=== PATIENT | female | born 1980 | race Hispanic/Latino ===

== ENCOUNTER 2021-02-01 00:43 | Emergency (ER) | payer SELFPAY ==
[2021-02-01 00:56] VITALS: BP 156/94
[2021-02-01] MEDS ORDERED: LIDOCAINE (1%) 10 MG/1 ML VIAL 20 ML MDV INFILTRATI ONE (03:05)
[2021-02-01] MEDS ORDERED: TETANUS,DIPH,PERTUSS(ACELL) VACCINE 0.5 ML SYRINGE IM ONE (03:05)
--- NOTE | 2021-02-01 03:29 | Emergency Department Report ---
ED General Adult HPI - General Chief complaint: Wound/Laceration Stated complaint: LT HAND LACERATION Time Seen by Provider: 02/01/21 02:06 Source: patient Mode of arrival: Ambulatory Limitations: No Limitations - History of Present Illness Initial comments: 40-year-old female patient presents with laceration to right forearm today. She states she put her hand through a broken window. She is unsure of her last tetanus vaccination. She denies any difficulty moving her liver numbness/tingling/weakness in her limbs. Severity scale (0 -10): 5 - Related Data Previous Rx's Medication Instructions Recorded Last Taken Type Ibuprofen [Motrin 800 MG tab] 800 mg PO Q8HR PRN #20 tablet 02/01/21 Unknown Rx Mupirocin [Bactroban 2% OINT] 1 applic TP TID 7 Days #1 tube 02/01/21 Unknown Rx Allergies Allergy/AdvReac Type Severity Reaction Status Date / Time lamotrigine [From Lamictal] Allergy Rash Verified 02/01/21 00:53 ED Review of Systems ROS: Stated complaint: LT HAND LACERATION Other details as noted in HPI Musculoskeletal: denies: arthralgia Skin: denies: change in color Neurological: denies: numbness, paresthesias ED Past Medical Hx - Past Medical History Hx Hypertension: Yes (off meds) Hx Psychiatric Treatment: Yes (schizoaffective) Additional medical history: high cholesterol - Surgical History Hx Breast Surgery: Yes (left (cyst)) Additional Surgical History: LEEP - Social History Smoking Status: Never Smoker Substance Use Type: None - Medications Home Medications: Home Medications Medication Instructions Recorded Confirmed Last Taken Type Ibuprofen [Motrin 800 MG tab] 800 mg PO Q8HR PRN #20 tablet 02/01/21 Unknown Rx Mupirocin [Bactroban 2% OINT] 1 applic TP TID 7 Days #1 tube 02/01/21 Unknown Rx ED Physical Exam - General Limitations: No Limitations General appearance: alert, in no apparent distress - Head Head exam: Present: atraumatic, normocephalic - Eye Eye exam: Present: normal appearance - Respiratory Respiratory exam: Absent: respiratory distress - Cardiovascular Cardiovascular Exam: Present: regular rate - Expanded Upper Extremity Exam Right Forearm Wrist exam: Present: full ROM, laceration (Approximately 4 cm linear laceration noted to volar aspect of forearm without active bleeding or obvious foreign bodies). Absent: swelling Hand Wrist exam: Present: normal inspection Vascular: Absent: vascular compromise - Neurological Exam Neurological exam: Present: alert, oriented X3 - Psychiatric Psychiatric exam: Present: normal affect, normal mood ED Course Vital Signs 02/01/21 00:53 Temperature 98.8 F Pulse Rate 99 H Respiratory 18 Rate Blood Pressure 156/94 O2 Sat by Pulse 98 Oximetry - Laceration /Wound Repair Arm Wound Location: upper extremity Wound Length (cm): 4 Wound's Depth, Shape: linear Irrigated w/ Saline (ccs): 50 Betadine Prep?: No Anesthesia: Lidocaine w/ Epi Volume Anesthetic (ccs): 3 Wound Repaired With: sutures Suture Size/Type: 4:0, proline Number of Sutures: 8 (Continuous) Layer Closure?: No Sterile Dressing Applied?: Yes Progress: Minimal bleeding occurred. Patient tolerated procedure well without any immediate complications. She has normal perfusion and range of motion of the forearm and wrist/hand post procedure ED Medical Decision Making - Medical Decision Making 40-year-old female patient presents with laceration to right forearm today. She states she put her hand through a broken window. She is unsure of her last tetanus vaccination. She denies any difficulty moving her liver numbness/tingling/weakness in her limbs. Laceration repair without any immediate complications. Prescription for mupirocin given. Discussed wound care and signs and symptoms that should prompt immediate return to the emergency department in detail with patient who verbalizes understanding. She is to return to the ED in 10 days for suture removal. She is well-appearing and stable for discharge home. Critical care attestation.: If time is entered above; I have spent that time in minutes in the direct care of this critically ill patient, excluding procedure time. ED Disposition Clinical Impression: Laceration of right forearm Qualifiers: Encounter type: initial encounter Qualified Code(s): S51.811A - Laceration without foreign body of right forearm, initial encounter Disposition: TO HOME OR SELFCARE Is pt being admited?: No Condition: Stable Instructions: Sutured Wound Care, [id number] Additional Instructions: Return to the emergency department in 10 days for suture removal Prescriptions: Mupirocin [Bactroban 2% OINT] 1 applic TP TID 7 Days #1 tube Ibuprofen [Motrin 800 MG tab] 800 mg PO Q8HR PRN #20 tablet PRN Reason: pain Referrals: GUCCI MAN MD [Primary Care Provider] - 3-5 Days
== END 2021-02-01 03:40 | disposition home or self-care (01) ==
LOC: ED 00:43
DX: S51.811A Laceration without foreign body of right forearm, initial encounter (principal); I10 Essential (primary) hypertension; E78.00 Pure hypercholesterolemia, unspecified; Z98.890 Other specified postprocedural states; Z79.899 Other long term (current) drug therapy; W26.8XXA Contact with other sharp object(s), not elsewhere classified, initial encounter; Y93.89 Activity, other specified; Y92.89 Other specified places as the place of occurrence of the external cause; Y99.8 Other external cause status
CPT/HCPCS: 90471; 90715; 99282

== ENCOUNTER 2021-02-10 10:03 | Emergency (ER) | payer SELFPAY ==
[2021-02-10 10:33] VITALS: BP 142/67
--- NOTE | 2021-02-10 11:11 | Emergency Department Report ---
Suture/Staple Removal - [facility] Chief Complaint: Laceration/Recheck/Suture Stated Complaint: STITCHES REMOVED Time Seen by Provider: 02/10/21 10:38 When Sutures or [place] Placed: 8-10 Days Ago Wound Location: right forearm ED Review of Systems ROS: Stated complaint: STITCHES REMOVED Other details as noted in HPI Constitutional: denies: chills, fever Eyes: denies: eye pain, eye discharge, vision change ENT: denies: ear pain, throat pain Respiratory: denies: cough, shortness of breath, wheezing Cardiovascular: denies: chest pain, palpitations Endocrine: no symptoms reported Gastrointestinal: denies: abdominal pain, nausea, diarrhea Genitourinary: denies: urgency, dysuria, discharge Musculoskeletal: denies: back pain, joint swelling, arthralgia Skin: denies: rash, lesions Neurological: denies: headache, weakness, paresthesias Psychiatric: denies: anxiety, depression Hematological/Lymphatic: denies: easy bleeding, easy bruising ED Past Medical Hx - Past Medical History Hx Hypertension: Yes (off meds) Hx Psychiatric Treatment: Yes (schizoaffective) Additional medical history: high cholesterol - Surgical History Hx Breast Surgery: Yes (left (cyst)) Additional Surgical History: LEEP - Social History Smoking Status: Never Smoker - Medications Home Medications: Home Medications Medication Instructions Recorded Confirmed Last Taken Type Ibuprofen [Motrin 800 MG tab] 800 mg PO Q8HR PRN #20 tablet 02/01/21 Unknown Rx Mupirocin [Bactroban 2% OINT] 1 applic TP TID 7 Days #1 tube 02/01/21 Unknown Rx Suture Removal Exam - Exam General: Vital signs noted. No distress. Alert and acting appropriately. Wound: No Pathologic Erythema, No Tenderness, No Drainage, No Pus, No Wound De hiscence Other Systems: All other systems reviewed and are unremarkable. ED Course Vital Signs 02/10/21 10:33 Temperature 98.2 F Pulse Rate 79 Respiratory 18 Rate Blood Pressure 142/67 O2 Sat by Pulse 93 Oximetry - Reevaluation(s) Reevaluation #1: 02/10/21 11:12 Patient is speaking in full sentences with no signs of distress noted. ED Recheck MDM - Medical Decision Making This is a 40-year-old female that presents with suture removal. She is stable and was examined by me. Total of 8 running sutures has been removed and patient tolerated well. No signs of wound dehiscence, drainage, or cellulitis. Patient was referred to Follow-up with a primary care doctor in 3-5 days or if symptoms worsen and continue return to emergency room as soon as possible. At time of discharge, the patient does not seem toxic or ill in appearance. No acute signs of distress noted. Patient agrees to discharge treatment plan of care. No further questions noted by the patient. Critical care attestation.: If time is entered above; I have spent that time in minutes in the direct care of this critically ill patient, excluding procedure time. ED Disposition Clinical Impression: Encounter for removal of sutures Disposition: DC-01 TO HOME OR SELFCARE Is pt being admited?: No Does the pt Need Aspirin: No Condition: Stable Additional Instructions: Follow-up with a primary care doctor in 3-5 days or if symptoms worsen and continue return to emergency room as soon as possible. Referrals: PRIMARY MD MAN [Referring] - 3-5 Days RAVINDER MORAN MD [Staff Physician] - 3-5 Days Time of Disposition: 11:13
== END 2021-02-10 13:10 | disposition home or self-care (01) ==
LOC: ED 10:03
DX: S51.811D Laceration without foreign body of right forearm, subsequent encounter (principal); I10 Essential (primary) hypertension; E78.00 Pure hypercholesterolemia, unspecified; W26.8XXD Contact with other sharp object(s), not elsewhere classified, subsequent encounter
CPT/HCPCS: 99282

== ENCOUNTER 2021-04-27 07:35 | Emergency (ER) | payer SELFPAY ==
--- NOTE | 2021-04-27 07:49 | Emergency Department Report ---
ED Female HPI - General Stated complaint: ABD PAIN Time Seen by Provider: 04/27/21 07:46 - History of Present Illness Initial comments: Patient presents concerning a mass in the perirectal and vaginal area. She states that she has noticed this before, but she was concerned that it may have gotten bigger. She reports of being constipated yesterday. She took a laxative and had lots of cramping yesterday. She is not having any abdominal cramping t jana. She did have a bowel movement. She noticed that this mass or fullness area seem to be getting bigger. That made her concerned. She admits that it has been there for a while. She does have a history of HPV. She was concerned that it could be related to cancer or something of that nature. There is no trauma. She has no fevers or chills but there is no cough congestion. She has had no vomiting or diarrhea. Patient denies urinary symptoms. There is no vaginal discharge. - Related Data Previous Rx's Medication Instructions Recorded Last Taken Type Ibuprofen [Motrin 800 MG tab] 800 mg PO Q8HR PRN #20 tablet 02/01/21 Unknown Rx Mupirocin [Bactroban 2% OINT] 1 applic TP TID 7 Days #1 tube 02/01/21 Unknown Rx Allergies Allergy/AdvReac Type Severity Reaction Status Date / Time lamotrigine [From Lamictal] Allergy Rash Verified 02/01/21 00:53 ED Review of Systems ROS: Stated complaint: ABD PAIN Other details as noted in HPI Comment: All other systems reviewed and negative Constitutional: denies: fever ENT: denies: throat pain Respiratory: denies: cough Cardiovascular: denies: chest pain Endocrine: denies: unexplained weight loss Gastrointestinal: as per HPI Genitourinary: denies: dysuria Musculoskeletal: denies: back pain Skin: denies: rash Neurological: denies: headache Hematological/Lymphatic: denies: easy bruising ED Past Medical Hx - Past Medical History Hx Hypertension: Yes (off meds) Hx Psychiatric Treatment: Yes (schizoaffective) Additional medical history: high cholesterol - Surgical History Hx Breast Surgery: Yes (left (cyst)) Additional Surgical History: LEEP - Family History Family history: hypertension - Social History Smoking Status: Never Smoker - Medications Home Medications: Home Medications Medication Instructions Recorded Confirmed Last Taken Type Ibuprofen [Motrin 800 MG tab] 800 mg PO Q8HR PRN #20 tablet 02/01/21 Unknown Rx Mupirocin [Bactroban 2% OINT] 1 applic TP TID 7 Days #1 tube 02/01/21 Unknown Rx ED Physical Exam - General Limitations: No Limitations, Other ( Pulse ox is noted and normal.) General appearance: alert, in no apparent distress, anxious, obese - Head Head exam: Present: atraumatic, normocephalic, normal inspection - Eye Eye exam: Present: normal appearance, EOMI. Absent: scleral icterus - ENT ENT exam: Present: normal exam, normal orophraynx, normal external ear exam - Neck Neck exam: Absent: meningismus - Respiratory Respiratory exam: Present: normal lung sounds bilaterally. Absent: respiratory distress - Cardiovascular Cardiovascular Exam: Present: regular rate, normal rhythm - GI/Abdominal GI/Abdominal exam: Present: soft. Absent: distended, tenderness - Rectal Rectal exam: Present: normal inspection, normal rectal tone, other (No mass or tumor is noted on digital exam. Exam was completed with female sweetbread trimmer.). Absent: hemorrhoids, mass, tenderness - External exam: Present: normal external exam, other ( Exam was completed with female sweetbread trimmer.) - Extremities Exam Extremities exam: Present: normal capillary refill - Back Exam Back exam: Absent: CVA tenderness (R), CVA tenderness (L) - Neurological Exam Neurological exam: Present: alert, oriented X3, CN II-XII intact, normal gait - Psychiatric Psychiatric exam: Present: normal affect, normal mood - Skin Skin exam: Present: warm, dry ED Course Vital Signs 04/27/21 07:47 Temperature 98.2 F Pulse Rate 105 H Respiratory 20 Rate Blood Pressure 128/84 O2 Sat by Pulse 98 Oximetry - Reevaluation(s) Reevaluation #1: 04/27/21 07:48 Pelvic exam was requested. Reevaluation #2: 04/27/21 08:16 Perineal exam was completed. Patient was discharged. 04/27/21 08:16 ED Medical Decision Making - Medical Decision Making Patient presents with reports of a perineal mass. There was no evidence of abscess. She certainly did not have obvious fungating tumor. Symptoms related to her constipation are not related to this. Abdomen remains soft and nontender. She may benefit from outpatient gynecologic evaluation. We will refer her. She does not need any type of emergent intervention at this time. There was no evidence of tumor or mass. She was fearful of rectal cancer, and may benefit from outpatient endoscopy. She certainly does not need an emergent endoscopy or admission. Critical Care Time: No Critical care attestation.: If time is entered above; I have spent that time in minutes in the direct care of this critically ill patient, excluding procedure time. ED Disposition Clinical Impression: Rectal fullness Disposition: HOME / SELF CARE / HOMELESS Is pt being admited?: No Does the pt Need Aspirin: No Condition: Stable Additional Instructions: Drink plenty of water and have a high-fiber diet to prevent constipation. Return for problems. Follow-up with your plaster machine tender for recheck and further evaluation. Referrals: PRIMARY CAREMD [Referring] - 3-5 Days LISSY EDDY MD [Staff Physician] - 3-5 Days
[2021-04-27 07:55] VITALS: BP 128/84
== END 2021-04-27 09:18 | disposition home or self-care (01) ==
LOC: ED 07:35
DX: K62.89 Other specified diseases of anus and rectum (principal); I10 Essential (primary) hypertension; E78.00 Pure hypercholesterolemia, unspecified; Z79.899 Other long term (current) drug therapy; Z98.890 Other specified postprocedural states; Z88.8 Allergy status to other drugs, medicaments and biological substances
CPT/HCPCS: 99282